=== PATIENT | female | born 1955 | race Two or more races ===

== ENCOUNTER 2018-09-19 23:02 | Emergency (ER) | payer BC, MEDICARE ==
[2018-09-20] MEDS ORDERED: traMADol TAB* 50 MG PO ONE (02:11)
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
[2018-09-20 05:29] VITALS: BP 119/79
== END 2018-09-20 06:30 | disposition home or self-care (01) ==
LOC: ED 23:02
DX: S02.2XXA Fracture of nasal bones, initial encounter for closed fracture (principal); S93.401A Sprain of unspecified ligament of right ankle, initial encounter; S00.83XA Contusion of other part of head, initial encounter; W19.XXXA Unspecified fall, initial encounter; F17.210 Nicotine dependence, cigarettes, uncomplicated; Z79.899 Other long term (current) drug therapy; M17.11 Unilateral primary osteoarthritis, right knee
CPT/HCPCS: 70450; 70486; 72125; 99284; A9270-GY

== ENCOUNTER 2019-05-09 09:41 | Emergency (ER) | payer MEDICARE ==
--- OUTSIDE RECORDS SUMMARY | 2019-05-09 10:05 | XMS REPORT | Continuity of Care Document ---
:1955 External Reference #:[id number] Author Name TUCKER gNo Address [address] [place] [address] Care Team Providers Name Role Phone Vikas Gamble MD - Family Medicine Care Team Information Biomass Production Manager [phone] Asthma & Allergy - Allergy & Care Team Information Biomass Production Manager [phone] Immunology Problems Active Problems Provider Date Electrocardiogram abnormal Vikas Gamble M.D. Onset: 12/29/2017 Osteoporosis Vikas Gamble M.D. Onset: 12/29/2017 Tobacco use Vikas Gamble M.D. Onset: 12/29/2017 Knee pain Vikas Gamble M.D. Onset: 12/29/2017 Essential hypertension TUCKER Ngo Onset: 03/14/2015 Benign essential hypertension Vikas Gamble M.D. Onset: 02/04/2011 Depressive disorder Vikas Gamble M.D. Onset: 02/04/2011 Social History Type Date Description Comments Sex Unknown Tobacco Use Start: Unknown Current Cigarette Smoker Tobacco Use Start: Unknown Current Cigarette Smoker 1/2 Pack Daily Smoking Status Reviewed: 05/03/19 Current Cigarette Smoker 1/2 Pack Daily ETOH Use 10/2017 Currently consumes alcohol excessive, per the patient Tobacco Use Start: Unknown Patient is a current smoker, smokes every day Allergies, Adverse Reactions, Alerts Description No Known Drug Allergies Medications Active Medications SIG Qnty Indications Ordering Provider Date Tramadol HCL 1 every 6 hours 28tabs M54.5 Leilani Morales, 05/03/2019 50mg as needed pain POLE CLIMBER Tablets M54.6 Methocarbamol 1 by mouth twice 60tabs M54.6 Leilani Morales, 05/03/2019 500mg Tablets a day as needed POLE CLIMBER spasm M54.5 Celexa 2 by mouth every 180tabs F33.9 Leilani Nealyamilka [facility] 08/12/2018 40mg Tablets day F43.21 R45.84 Alprazolam 1 by mouth 60tabs Vikas SundarRupinder Gamble, 07/12/2018 0.25mg Tablets twice a day as M.D. needed [facility] Nicotine Transdermal apply 1 patch 42units Z72.0 Vikas SundarRupinder Gamble, 04/2017 System Step 1 to the skin M.D. 21mg/24HR Patches 24HR every 24 hours Metoprolol Tartrate take 1 tablet 60tabs Leilani 09/05/2011 50mg Tablets by mouth two [facility] times daily Hydrochlorothiazide Take 1 Tablet 30tabs Vikas SundarRupinder Gamble, 08/29/2011 25mg Tablets By Mouth Every M.D. Day. Eat A Banana Three Times Weekly Probiotic 1 po qd Unknown Capsules Magnesium Citrate 1 by mouth Unknown 250mg Tablets every day Vitamin D3 Unknown Mometasone Furoate 2 sprays in Unknown 50mcg/Act each nostril Suspension once daily Olopatadine HCL 1 drop each eye Unknown 0.1% Solution twice a day as needed Medications Administered in Office Medication SIG Qnty Indications Ordering Provider Date Injection Subcutaneous Or Leilani Nealyamilka [facility] 05/03/2019 Intramuscular Injection Immunizations CPT Code Status Date Vaccine Lot # [id number] Given 12/17/2018 Influenza Vac, [place] [id number] Given 01/03/2018 Influenza Vac, [place] [address] Given 01/04/2017 Influenza Vac, [place]riv[place] [address] Given 09/11/2016 Tdap Tetanus, W Pertussis [id number] Given 01/05/2016 Influenza Vac, [place]riv[place] [address] Given 08/10/2015 Pneumococcal Conjugate Vacc-13 12310 Given 06/20/2015 Zostivax 05582 Given 01/05/2015 Influenza Vac, [place]riv[place] [address] Given 01/13/2014 DO Not Use Split Influenza Virus Vaccine 92900 Given 02/13/2013 DO Not Use Split Influenza Virus Vaccine 21108 Given 03/18/2012 DO Not Use Split Influenza Virus Vaccine 35627 Given 12/19/2010 DO Not Use Split Influenza Virus Vaccine [id number] 22851 Given 02/02/2010 DO Not Use Split Influenza Virus Vaccine [id number] 82154 Given 01/29/2008 DO Not Use Split Influenza Virus Vaccine [id number] 88526 Given 02/06/2007 DO Not Use Split Influenza Virus Vaccine [id number] 33986 Given 02/07/2006 DO Not Use Split Influenza Virus Vaccine [id number] 68947 Given 02/13/2005 DO Not Use Split Influenza Virus Vaccine Vital Signs Date Vital Result Comment 05/03/2019 1:30pm BP Systolic 120 mmHg BP Diastolic 80 mmHg Heart Rate 70 /min Body Temperature 98.0 F Respiratory Rate 16 /min Weight 184.00 lb 08/12/2018 1:06pm BP Systolic 126 mmHg BP Diastolic 70 mmHg Heart Rate 70 /min Body Temperature 97.3 F Respiratory Rate 16 /min Weight 194.00 lb Results Test Acquired Facility Test Result H/L Range Note Date Laboratory test 12/30/2018 [facility] Cancelled - Not Applicable [address] [place] [address] NOTE> [phone] Laboratory test 12/30/2018 [facility] Cancelled - Not Applicable [address] [place] [address] NOTE> [phone] 1 Cancelled - Duplicate Order This order has been cancelled due to patient order duplication. Test Type: Composite algorithmic analysis of stool DNA-biomarkers with hemoglobin immunoassay. Quantitative values of individual biomarkers are not reportable and are not associated with individual biomarker result reference ranges. Precautions and Limitations: Cologuard is intended for colorectal cancer screening of adults of either sex, 50 years or older, who are at typical average-risk for colorectal cancer. A negative C ologuard test result does not guarantee the absence of colorectal cancer or advanced adenoma (pre-cancer). Patients with a negative Cologuard test result should be advised to continue participating in a colorectal cancer screening program. Cologuard may produce a positive result , even though a colonoscopy may not find colorectal cancer or precancerous polyps. The performance of Cologuard has been esta blished in a cross sectional study (i.e., single point in time). Performance has not been evaluated in adults who have been previously tested with Cologuard or in patients less than 50 years of age. Col oguard has been approved for use by the [place]. FDA. Cologuard performance data in a 10,000 patient pivotal study using colonoscopy as the reference method can be accessed at the following location: www.[employer]/results. Additional description of the Cologuard test process, warnings and precautions can be found at [email or web address]. Rx Only. 2 Cancelled - Order This order has because it has exceeded 365 days from the initial order. Please contact the laboratory to reorder this test if clinically indicated. Test Type: Composite algorithmic analysis of stool DNA-biomarkers with hemoglobin immunoassay. Quantitative values of individual biomarkers are not reportable and are not associated with individual biomarker result reference ranges. Precautions and Limitations: Cologuard is intended for colorectal cancer screening of adults of either sex, 50 years or older, who are at typical average -risk for colorectal cancer. A negative Cologuard test result does not guarantee the absence of colorectal cancer or advanced adenoma (pre-cancer). Patients with a negative Cologuard test result should be advised to continue participating in a colorec dewayne cancer screening program. Cologuard may produce a positive result, even though a colonoscopy may not find colorectal cancer or precancerous polyps. The performance of Cologuard has been established in a cross sectional study (i.e., single point in time). Performance has not been evaluated in adults who have been previously tested with Cologuard or in patients less than 50 years of age. Cologuard h as been approved for use by the [place].S. FDA. Cologuard performance data in a 10, 000 patient pivotal study using colonoscopy as the reference method can be accessed at the following location: www[employer]Medical/results. Additional description of the Cologuard test process, warnings and precautions can be found at [email or web address]. Rx Only. Procedures Date Code Description Status 05/03/2019 94671 Injection Subcutaneous Or Intramuscular Completed 02/22/2019 [id number] Mammogram Completed 12/15/2017 [id number] Mammogram Completed 12/15/2017 [id number] Bone Mineral Density Test Completed 10/01/2016 [id number] Mammogram Completed 03/21/2015 [id number] Mammogram Completed 03/28/2011 [id number] Mammogram Completed 03/22/2010 [id number] Mammogram Completed 01/23/2009 [id number] Mammogram Completed 09/30/2007 [id number] Mammogram Completed Medical Devices Description No Information Available Encounters Description No Information Available Assessments Date Code Description Provider 05/03/2019 F33.9 Major depressive disorder, recurrent, SD NgoP unspecified 05/03/2019 F43.21 Adjustment disorder with depressed mood Leilani Morales [facility] 05/03/2019 G47.00 Insomnia, unspecified Leilani Morales [facility] 05/03/2019 R45.84 Anhedonia Leilani Morales [facility] 05/03/2019 Z63.4 Disappearance and of family member Leilani Morales [facility] 05/03/2019 M54.6 Pain in thoracic spine Leilani Morales [facility] 05/03/2019 M54.5 Low back pain Leilani Morales [facility] 05/03/2019 K64.9 Unspecified hemorrhoids Leilani Morales [facility] 05/03/2019 K59.00 Constipation, unspecified TUCKER Ngo Plan of Treatment Future Appointment(s):05/17/2019 2:00 pm - TUCKER Ngo at [facility] Szhjqe5305/03/2019 - TUCKER NgoF33.9 Major depressive disorder, recurrent, unspecifiedComments:At this time we are going to increase your dose of Celexa so that you are taking 80mg (Two 40mg tablets) daily for the next two weeks until you follow-up in the office. It might really help to re-establish with [facility] or to meet with [facility] and their grief counseling services to help you through this difficult time. It is well known that the combination of medication andtherapy work better then medication alone in improving mood symptomsFollow up:2 weeks with LGF43.21 Adjustment disorder with depressed moodComments:See xirgiR63.00 Insomnia, unspecifiedComments:Once we get your back pain in better control the hope is that you are sleeping better. If not pleasefollow-up with the office to discuss alternative zcmelnaE68.84 AnhedoniaComments:See etfzzR65.4 Disappearance and of family memberComments:See tujbeA56.6 Pain in thoracic spineNew Medication:Tramadol HCL 50 mg - 1 every 6 hours as needed painMethocarbamol 500 mg - 1 by mouth twice a day as needed spasmNew Xrays:Thoracic Spine 2 Views, Ordered: 05/03/19Lumbar Spine 2 Or 3 Views, Ordered: 05/03/19Comments:Try gentle position changes throughout the day. Take the medications as prescribed. Try to take a daily warm shower. Continued use of your heating pad is also a good idea. Get your x-ray done this weekand we will follow-up with you per the result.M54.5 Low back painNew Medication:Tramadol HCL 50 mg - 1 every 6 hours as needed painMethocarbamol 500 mg - 1 by mouth twice a day as needed spasmNew Xrays:Lumbar Spine 2 Or 3 Views, Ordered: 05/03/19K64.9 Unspecified hemorrhoidsComments:Continued use of [id number] hydrocortisone cream 1% to help reduce swelling from the hemorrhoids as well as Tucks or witch kj pads for soothing. Also add fiber into your diet with use of metamucil or increased dietary fiber intake can help reduce straining and discomfort from zbttuupnjbvQ12.00 Constipation, unspecifiedAllComments:Medication Management Patient Understands medications he 's taking? Yes No Are there Barriers to Adherence? Yes No Has the patient been asked about herbal supplements and therapies, andOTC meds? Yes No As always, we strongly encourage a healthy diet and making physical activity a part of your every day life. If you have questions about how or where to start, please contact the office. Functional Status Description No Information Available Mental Status Description No Information Available Referrals Description No Information Available
--- NOTE | 2019-05-09 12:49 | ED ---
Back Pain - HPI Summary HPI Summary: This pt is a 64 y/o female presenting to [facility] c/o upper and middle back pain since 5 weeks ago s/p getting out of bed and twisting back. Pt reports 5 weeks ago she got up from bed one morning and twisted her back "funny." Pt states she tried acupuncture and chiropractor but was told they couldn't help her with her back. Pt notes she went to see her PCP on 05/03/19 where she was given a shot of [place] and prescribed muscle relaxant and Tramadol. Pt had x-rays done on 08/16. Pt notes [place] and muscle relaxants have not been helping her pain and was then prescribed Hydrocodone. Pt took Hydrocodone on 05/06, 05/07, and 05/08 with no relief and instead has constipation from it. Pt reports her pain is nonradiating in her back. Denies fever, chest pain, SOB, urinary or fecal dysfunction, weakness, numbness, or tingling in lower extremities. - History of Current Complaint Chief Complaint: EDBackInjuryPain Stated Complaint: BACK PAIN PER PT Hx Obtained From: Patient Onset/Duration: Lasting Weeks, Still Present Onset/Duration: Started Weeks Ago, Still Present Timing: Lasting Weeks Back Pain Location: Is Discrete @ - upper and middle back Severity Currently: Severe Pain Intensity: 10 Pain Scale Used: 0-10 Numeric Aggravating Symptom(s): Nothing Alleviating Symptom(s): Nothing Associated Signs And Symptoms: Negative: Fever, Weakness, Numbness, Tingling, Bladder Incontinence, Bowel Incontinence - Allergies/Home Medications Allergies/Adverse Reactions: Allergies Allergy/AdvReac Type Severity Reaction Status Date / Time lactose Allergy Diarrhea Verified 05/09/19 09:57 Home Medications: Home Medications Cholecalciferol CAP/TAB(NF) [Vitamin D3 CAP/TAB (NF)] 5,000 unit PO DAILY [History Confirmed 05/09/19] HYDROcodone/ACETAMIN 5-325 MG* [[place] 5-325 TAB*] 1 tab PO TID PRN 05/09/19 [ History Confirmed 05/09/19] L.acidoph,Paracasei, B.lactis [Probiotic] 1 each PO DAILY 05/09/19 [History Confirmed 05/09/19] Magnesium Chloride EC TAB* [Slow Mag EC TAB*] 250 mg PO DAILY 05/09/19 [History Confirmed 05/09/19] Methocarbamol TAB* [Robaxin 500 MG TAB*] 500 mg PO BID PRN 05/09/19 [History Confirmed 05/09/19] Mometasone NASAL (NF) [Nasonex (NF)] 2 spray BOTH NARES DAILY 05/09/19 [History Confirmed 05/09/19] Nicotine PATCH 21 MG/24 HR* 21 mg TRANSDERM DAILY 05/09/19 [History Confirmed ] Olopatadine 0.1% OPHTH (NF) [Patanol 0.1% OPHTH (NF)] 1 drop BOTH EYES BID 05/09 [History Confirmed 05/09/19] PMH/Surg Hx/FS Hx/Imm Hx Endocrine/Hematology History: Denies: Hx Diabetes Musculoskeletal History: Denies: Hx Osteoporosis Sensory History: Denies: Hx Legally Blind, Hx Deafness Opthamlomology History: Denies: Hx Legally Blind Psychiatric History: Reports: Hx Anxiety, Hx Depression, Hx Post Traumatic Stress Disorder - Cancer History Hx Chemotherapy: No Hx Radiation Therapy: No Infectious Disease History: No Infectious Disease History: Denies: Traveled Outside the [place] in Last 30 Days - Family History Known Family History: Positive: Other - breast CA - Social History Alcohol Use: Daily Alcohol Amount: 3 beers/day Substance Use Type: Reports: None Smoking Status (MU): Heavy Every Day Tobacco Smoker Review of Systems Negative: Fever Negative: Chest Pain Negative: Shortness Of Breath Gastrointestinal: Other - POSITIVE: constipation Negative: incontinence Musculoskeletal: Other - POSITIVE: middle and upper back pain Negative: Weakness, Paresthesia, Numbness All Other Systems Reviewed And Are Negative: Yes Physical Exam - Summary Physical Exam Summary: VITAL SIGNS: Reviewed. GENERAL: Patient is a well-developed and nourished female. Patient is not in any acute respiratory distress. HEAD AND FACE: No signs of trauma. No ecchymosis, hematomas or skull depressions. No sinus tenderness. EYES: PERRLA, EOMI x 2, No injected conjunctiva, no nystagmus. EARS: Hearing grossly intact. Ear canals and tympanic membranes are within normal limits. MOUTH: Oropharynx within normal limits. NECK: Supple, trachea is midline, no adenopathy, no JVD, no carotid bruit, no c- spine tenderness, neck with full ROM. CHEST: Symmetric, no tenderness at palpation LUNGS: Clear to auscultation bilaterally. No wheezing or crackles. CVS: Regular rate and rhythm, S1 and S2 present, no murmurs or gallops appreciated. ABDOMEN: Soft, non-tender. No signs of distention. No rebound, no guarding, and no masses palpated. Bowel sounds are normal. MSK: FROM in all major joints, no edema, no cyanosis or clubbing. Paraspinal muscle tenderness in the thoracic spine. NEURO: Alert and oriented x 3. No acute neurological deficits. Speech is normal and follows commands. SKIN: Dry and warm Triage Information Reviewed: Yes Vital Signs On Initial Exam: Initial Vitals Temp Pulse Resp BP Pulse Ox 98.5 F 64 18 149/89 95 05/09/19 09:53 05/09/19 09:53 05/09/19 09:53 05/09/19 09:53 05/09/19 09:53 Vital Signs Reviewed: Yes Procedures - Sedation Patient Received Moderate/Deep Sedation with Procedure: No Diagnostics - Vital Signs Vital Signs Temp Pulse Resp BP Pulse Ox 05/09/19 09:53 98.5 F 64 18 149/89 95 - Laboratory Lab Statement: Any lab studies that have been ordered have been reviewed, and results considered in the medical decision making process. - Radiology Thoracic spine XR (from 05/04/19) Radiology Interpretation Completed By: Radiologist Summary of Radiographic Findings: IMPRESSION: Osteopenia. Age-indeterminate compression deformity of T6. Degenerative disc disease. Dr. Carbone has reviewed this report. Lumbar spine XR (from 05/04/19) Radiology Interpretation Completed By: Radiologist Summary of Radiographic Findings: IMPRESSION: 1. Osteopenia with age indeterminate compression fractures of T12 and L1. 2. Advanced degenerative disc disease at T12-L1. 3. Moderate facet arthropathy from L3-L4 through L5-S1. 4. Multilevel listhesis as above. 5. Calcified abdominal aorta. Dr. Carbone has reviewed this report. - CT Lumbar spine CT CT Interpretation Completed By: Radiologist Summary of CT Findings: IMPRESSION: #. T12, L1, and L2 probable osteoporotic compression fractures are likely chronic. No acute fracture evident. #. Degenerative arthropathy with multilevel significant acquired central canal and foraminal spinal stenosis as described above. Dr. Carbone has reviewed this report. Thoracic spine CT CT Interpretation Completed By: Radiologist Summary of CT Findings: IMPRESSION: 1. An age-indeterminate T6 compression fracture, resulting 40% vertebral body height loss, is likely subacute. There is no severe bony retropulsion. 2. More chronic appearing L1 compression deformity (50% height loss). 3. Coronary artery disease. 4. No severe osseous encroachment spinal canal and neural foramina. Dr. Carbone has reviewed this report. Re-Evaluation - Re-Evaluation First Eval Re-Evaluation Time: 13:05 Comment: Patient is ambulating in the ED without any significant abnormalities while using a cane without any pain. Second Eval Re-Evaluation Time: 14:49 Change: Improved Comment: Pain is controlled after pain medications. She will be discharged home with follow up from neurosurgery. Back Pain Course/Dx - Course Assessment/Plan: This pt is a 64 y/o female presenting to [facility] c/o upper and middle back pain since 5 weeks ago s/p getting out of bed and twisting back. Pt reports 5 weeks ago she got up from bed one morning and twisted her back "funny. " Pt states she tried acupuncture and chiropractor but was told they couldn't help her with her back. Pt notes she went to see her PCP on 05/03/19 where she was given a shot of [place] and prescribed muscle relaxant and Tramadol. Pt had x- rays done on 05/04/19. Pt notes [place] and muscle relaxants have not been helping her pain and was then prescribed Hydrocodone. Pt took Hydrocodone on , 05/07, and 05/08 with no relief and instead has constipation from it. Pt reports her pain is nonradiating in her back. Denies fever, chest pain, SOB, urinary or fecal dysfunction, weakness, numbness, or tingling in lower extremities. In the ED course the patient was placed in a radiation monitor, IV access was obtained, and she was given Toradol, Norflex and Decadron for the pain. T-spine CT IMPRESSION: 1. An age-indeterminate T6 compression fracture, resulting 40% vertebral body height loss, is likely subacute. There is no severe bony retropulsion. 2. More chronic appearing L1 compression deformity ( 50% height loss). 3. Coronary artery disease. 4. No severe osseous encroachment spinal canal and neural foramina. L-spine CT IMPRESSION: #. T12, L1, and L2 probable osteoporotic compression fractures are likely chronic. No acute fracture evident. #. Degenerative arthropathy with multilevel significant acquired central canal and foraminal spinal stenosis as described above. The patients pain has been controlled. The patient is able to ambulate with minimal pain. I discussed my physical exam and findings with the patient and the need to follow-up with neurosurgery. The patient understands and agrees. The patient will be given a prescription for Medrol Dosepak, ibuprofen and Robaxin. The patient already has [place] at home. She will also have a prescription for MiraLAX. At this point, I discussed all the findings and test results with the patient. Patient was instructed to return to the emergency room immediately if any of the symptoms return or worsen. Plan of care was discussed with the patient and the patient understands and agrees. All questions were answered at patient satisfaction. Patient understands and agrees. Neurological exam before discharge: Patient is alert and oriented x 3. No acute neurological deficits. Patient's vital signs are stable. Patient is to follow up with Neurosurgery. They understand and agree. The plan of care was discussed with the patient and the patient understands and agrees with the plan of care. All questions were answered at patient satisfaction. There were no further complaints or concerns. - Diagnoses Provider Diagnoses: Vertebral compression fracture, Back pain Discharge ED - Sign-Out/Discharge Documenting (check all that apply): Patient Departure - Discharge home - Discharge Plan Condition: Stable Disposition: HOME Prescriptions: Ibuprofen TAB* [Motrin TAB* 600 MG] 600 mg PO Q6H PRN #30 tab PRN Reason: Pain - Mild Methocarbamol TAB* [Robaxin 500 MG TAB*] 500 mg PO BID #12 tab methylPREDNISolone [Medrol] 4 mg PO QAM #1 tab.ds.[id number] Patient Education Materials: Vertebral Compression Fracture (ED), Back Pain (ED ) Referrals: Vikas Gamble MD [Primary Care Provider] - Tammy Pryor MD [Medical Doctor] - Additional Instructions: FOLLOW UP WITH YOUR PRIMARY CARE PROVIDER IN 2-3 DAYS. Follow up with neurosurgery (Dr. Pryor), call their office and make an appointment. RETURN TO THE ED FOR ANY NEW OR WORSENING SYMPTOMS. - Billing Disposition and Condition Condition: STABLE Disposition: Home - Attestation Statements Document Initiated by Scribe: Yes Documenting Scribe: Peri Rodriguez Provider For Whom Scribe is Documenting (Include Credential): Harsha Carbone MD Scribe Attestation: IPeri, scribed for Harsha Carbone MD on 05/11/19 at 0220. Scribe Documentation Reviewed: Yes Provider Attestation: The documentation as recorded by the Peri clark accurately reflects the service I personally performed and the decisions made by , Harsha Carbone MD Status of Scribe Document: Viewed
[2019-05-09] MEDS ORDERED: Dexamethasone IV* 4 MG/ML 1 ML (4 MG) IV SLOW PU ONE (12:52)
[2019-05-09] MEDS ORDERED: Ketorolac INJ* 30 MG/ML 1 ML VIAL IV PUSH ONE (12:52)
[2019-05-09] MEDS ORDERED: Orphenadrine Citrate IV* 30 MG/ML 2 ML VIAL IV ONE (12:53)
[2019-05-09 15:18] VITALS: BP 178/89
== END 2019-05-09 15:19 | disposition home or self-care (01) ==
LOC: ED 09:41
DX: M48.55XA Collapsed vertebra, not elsewhere classified, thoracolumbar region, initial encounter for fracture (principal); I25.10 Atherosclerotic heart disease of native coronary artery without angina pectoris; F41.9 Anxiety disorder, unspecified; F32.9 Major depressive disorder, single episode, unspecified; F43.10 Post-traumatic stress disorder, unspecified; F17.200 Nicotine dependence, unspecified, uncomplicated; Z79.899 Other long term (current) drug therapy
CPT/HCPCS: 72128; 72131; 96374; 96375; 99283; J1100; J1885; J2360

== ENCOUNTER 2019-05-16 09:53 | Emergency (ER) | payer MEDICARE ==
--- NOTE | 2019-05-16 10:30 | ED ---
Back Pain - HPI Summary HPI Summary: 64 year old F presenting to [facility] accompanied by EMS complains of unresolved back pain due to compressed vertebrae for which she came to [facility] last week for. Patient reports constipation and hemorrhoids as well. She states she has not been to the bathroom in two weeks and has a loss of appetite having only consumed protein drinks and oatmeal in the meantime. She wanted to be admitted last week for her back pain but was not allowed to and was told to come back in a week if the symptoms did not resolve hence her return. PMHx of arthritis in her knees. She is taking Prednisone but just ran out yesterday 05/15/2019, ibuprofen, and an antispasmodic. The patient rates the pain 10/10 in severity. Symptoms aggravated by movement. Symptoms alleviated by nothing. - History of Current Complaint Chief Complaint: EDBackInjuryPain Stated Complaint: BACK PAIN PER EMS Time Seen by Provider: 05/16/19 09:57 Hx Obtained From: Patient Onset/Duration: Lasting Weeks - since last week, Still Present Onset/Duration: Started Weeks Ago - last week Timing: Constant Severity Currently: Severe Pain Intensity: 10 Pain Scale Used: 0-10 Numeric Aggravating Symptom(s): Movement Alleviating Symptom(s): Nothing Associated Signs And Symptoms: Positive: Other - Back pain, constipation, hemorrhoids, loss of appetite. - Allergies/Home Medications Allergies/Adverse Reactions: Allergies Allergy/AdvReac Type Severity Reaction Status Date / Time lactose Allergy Diarrhea Verified 05/09/19 09:57 Home Medications: Home Medications Magnesium Citrate 250 mg PO DAILY 05/16/19 [History Confirmed 05/16/19] PMH/Surg Hx/FS Hx/Imm Hx Endocrine/Hematology History: Denies: Hx Diabetes Musculoskeletal History: Denies: Hx Osteoporosis Sensory History: Denies: Hx Legally Blind, Hx Deafness Opthamlomology History: Denies: Hx Legally Blind Psychiatric History: Reports: Hx Anxiety, Hx Depression, Hx Post Traumatic Stress Disorder - Cancer History Hx Chemotherapy: No Hx Radiation Therapy: No Infectious Disease History: No Infectious Disease History: Denies: Traveled Outside the [place] in Last 30 Days - Family History Known Family History: Positive: Other - breast CA - Social History Alcohol Use: Occasionally Alcohol Amount: 3 beers/day Substance Use Type: Reports: None Smoking Status (MU): Light Every Day Tobacco Smoker Review of Systems Constitutional: Other - loss of appetite Gastrointestinal: Other - constipation and hemorrhoids Positive: Other - back pain from compressed vertebrae All Other Systems Reviewed And Are Negative: Yes Physical Exam - Summary Physical Exam Summary: Appearance: The patient is well-nourished in no acute distress and in no acute pain. Skin: The skin is warm and dry, and skin color reflects adequate perfusion. HEENT: The head is normocephalic and atraumatic. The pupils are equal and reactive. The conjunctivae are clear and without drainage. Nares are patent and without drainage. Mouth reveals moist mucous membranes, and the throat is without erythema and exudate. The external ears are intact. The ear canals are patent and without drainage. The tympanic membranes are intact. Neck: The neck is supple with full range of motion and non-tender. There are no carotid bruits. There is no neck vein distension. Respiratory: Chest is non-tender. Lungs are clear to auscultation and breath sounds are symmetrical and equal. Cardiovascular: Heart is regular rate and rhythm. There is no murmur or rub auscultated. There is no peripheral edema and pulses are symmetrical and equal. Abdomen: The abdomen is soft and non-tender. There are normal bowel sounds heard in all four quadrants and there is no organomegaly palpated. Musculoskeletal: Paradorsal area tenderness noted. Negative straight leg raise. Neurological: Patient is alert and oriented to person, place and time. The patient has symmetrical motor strength in all four extremities. Cranial nerves are grossly intact. Deep tendon reflexes are symmetrical and equal in all four extremities. Psychiatric: The patient has an appropriate affect and does not exhibit any anxiety or depression. Triage Information Reviewed: Yes Vital Signs On Initial Exam: Initial Vitals Temp Pulse Resp BP Pulse Ox 97.1 F 52 18 135/76 93 05/16/19 09:56 05/16/19 09:56 05/16/19 09:56 05/16/19 09:56 05/16/19 09:56 Vital Signs Reviewed: Yes Procedures - Sedation Patient Received Moderate/Deep Sedation with Procedure: No Diagnostics - Vital Signs Vital Signs Temp Pulse Resp BP Pulse Ox 05/16/19 09:56 97.1 F 52 18 135/76 93 - Laboratory Lab Statement: Any lab studies that have been ordered have been reviewed, and results considered in the medical decision making process. - Radiology Abd x-ray Radiology Interpretation Completed By: Radiologist Summary of Radiographic Findings: IMPRESSION: LARGE AMOUNT RETAINED STOOL. has reviewed this report. Back Pain Course/Dx - Course Course Of Treatment: Ms. Lovell seen here about a week ago for back pain. She got a workup at that time was found to have a subacute thoracic compression fracture. She was given steroids as well as some opioids and did not like for the opioids felt and stopped taking them. She comes in today complaining that she has been constipated since. She was nontoxic in appearance stable vitals. She was given Ativan as a muscle relaxer and ketorolac for her back pain which helped a lot. Plain x-ray confirmed that the was a lot of stool in her descending and sigmoid colons. I'm treating her with a combination of Dulcolax suppositories and pills try to get her moving. - Diagnoses Provider Diagnoses: Constipation Discharge ED - Sign-Out/Discharge Documenting (check all that apply): Patient Departure - discharge - Discharge Plan Condition: Stable Disposition: HOME Prescriptions: Bisacodyl 10 mg SUPP [Dulcolax Supp*] 10 mg AL DAILY #2 supp Bisacodyl EC TAB* [Dulcolax EC TAB*] 5 mg PO DAILY #2 tab.ec Patient Education Materials: Constipation (ED) Referrals: Vikas Gamble MD [Primary Care Provider] - 3 Days Additional Instructions: Please follow up with your primary care provider in 3 days. Return to the Emergency Department for new or worsening symptoms. - Billing Disposition and Condition Condition: STABLE Disposition: Home - Attestation Statements Document Initiated by Maria Luz: Yes Documenting Scribe: Nahid Malik Provider For Whom Maria Luz is Documenting (Include Credential): Steve Badillo MD [employer] Attestation: Nahid Mccall, scribed for Steve Badillo MD on 05/16/19 at 1614. Scribe Documentation Reviewed: Yes Provider Attestation: The documentation as recorded by the Nahid clark accurately reflects the service I personally performed and the decisions made by me, Steve Badillo MD Status of Scribe Document: Viewed
[2019-05-16] MEDS ORDERED: LORazepam TAB(*) 1 MG PO ONE (10:35)
[2019-05-16] MEDS ORDERED: Ketorolac INJ* 30 MG/ML 1 ML VIAL IM ONE (10:35)
[2019-05-16 12:47] VITALS: BP 142/94
== END 2019-05-16 12:47 | disposition home or self-care (01) ==
LOC: ED 09:53
DX: K59.00 Constipation, unspecified (principal); S22.000D Wedge compression fracture of unspecified thoracic vertebra, subsequent encounter for fracture with routine healing; X58.XXXD Exposure to other specified factors, subsequent encounter; Z91.011 Allergy to milk products; F17.200 Nicotine dependence, unspecified, uncomplicated
CPT/HCPCS: 74018; 96372; 99283; A9270-GY; J1885

== ENCOUNTER 2019-05-18 13:38 | Emergency (ER) | payer MEDICARE ==
[2019-05-18] MEDS ORDERED: NS 0.9% 1000 ML** 1,000 ML IV ONE (14:02)
[2019-05-18] MEDS ORDERED: Ketorolac INJ* 30 MG/ML 1 ML VIAL IV PUSH ONE (14:20)
--- NOTE | 2019-05-18 14:20 | ED ---
Abdominal Pain/Female - HPI Summary HPI Summary: Patient is a 64-year-old female who presents emergency Department with chief complaint of constipation 25 days. Patient seen in the ED twice this week for back pain and constipation. Patient notes she has sustained compression fractures and has had ongoing back pain. Patient was prescribed a laxative that her last visit which she states is not helping. She denies vomiting. Patient states she is going to try to use an enema at home but states her back pain is too great to administer. Patient otherwise denies fever, chills, chest pain, shortness of breath. She has never had a colonoscopy. Patient also notes she has been feeling very depressed at home since her about a year ago. Patient states she was seeing a therapist in the summer but stopped once the weather got cold. Patient states she has not been taking care of herself and hasn't only been eating protein shakes. Patient states she does have friends in the area that help her with going to the store. Patient denies suicidal or homicidal ideations. Symptoms are moderate in severity. No current modifying factors. - History of Current Complaint Chief Complaint: EDGeneral Stated Complaint: BOWEL BLOCKAGE PER EMS Time Seen by Provider: 05/18/19 13:44 Pain Intensity: 3 Allergies/Adverse Reactions: Allergies Allergy/AdvReac Type Severity Reaction Status Date / Time lactose Allergy Diarrhea Verified 05/18/19 13:52 Home Medications: Home Medications ALPRAZolam TAB* [Xanax TAB*] 0.25 mg PO BID PRN 09/20/18 [History Confirmed ] Citalopram TAB* [Celexa TAB*] 40 mg PO DAILY 09/20/18 [History Confirmed ] Hydrochlorothiazide TAB* [Hydrodiuril TAB*] 25 mg PO DAILY 09/20/18 [History Confirmed 05/18/19] Metoprolol Tartrate TAB* [Lopressor TAB*] 50 mg PO BID 09/20/18 [History Confirmed 05/18/19] Cholecalciferol CAP/TAB(NF) [Vitamin D3 CAP/TAB (NF)] 5,000 unit PO DAILY [History Confirmed 05/18/19] HYDROcodone/ACETAMIN 5-325 MG* [[place] 5-325 TAB*] 1 tab PO TID PRN 05/09/19 [ History Confirmed 05/18/19] L.acidoph,Paracasei, B.lactis [Probiotic] 1 each PO DAILY 05/09/19 [History Confirmed 05/18/19] Methocarbamol TAB* [Robaxin 500 MG TAB*] 500 mg PO BID PRN 05/09/19 [History Confirmed 05/18/19] Mometasone NASAL (NF) [Nasonex (NF)] 2 spray BOTH NARES DAILY 05/09/19 [History Confirmed 05/18/19] Nicotine PATCH 21 MG/24 HR* 21 mg TRANSDERM DAILY 05/09/19 [History Confirmed ] Olopatadine 0.1% OPHTH (NF) [Patanol 0.1% OPHTH (NF)] 1 drop BOTH EYES BID 05/09 [History Confirmed 05/18/19] Magnesium Citrate 250 mg PO DAILY 05/16/19 [History Confirmed 05/18/19] Sodium Phosphate ADULT ENEMA* [Fleet Enema*] 1 enema TN DAILY PRN 05/18/19 [ History Confirmed 05/18/19] PMH/Surg Hx/FS Hx/Imm Hx Previously Healthy: Yes Endocrine/Hematology History: Denies: Hx Diabetes Musculoskeletal History: Denies: Hx Osteoporosis Sensory History: Denies: Hx Legally Blind, Hx Deafness Opthamlomology History: Denies: Hx Legally Blind Psychiatric History: Reports: Hx Anxiety, Hx Depression, Hx Post Traumatic Stress Disorder - Cancer History Hx Chemotherapy: No Hx Radiation Therapy: No Infectious Disease History: No Infectious Disease History: Denies: Traveled Outside the [place] in Last 30 Days - Family History Known Family History: Positive: Other - breast CA - Social History Occupation: Retired Lives: Alone Alcohol Use: None Alcohol Amount: 3 beers/day Substance Use Type: Reports: None Smoking Status (MU): Light Every Day Tobacco Smoker Review of Systems - ROS Summary Review of Systems Summary: ALPRAZolam TAB* [Xanax TAB*] 0.25 mg PO BID PRN 09/20/18 [History Confirmed ] Citalopram TAB* [Celexa TAB*] 40 mg PO DAILY 09/20/18 [History Confirmed ] Hydrochlorothiazide TAB* [Hydrodiuril TAB*] 25 mg PO DAILY 09/20/18 [History Confirmed 05/18/19] Metoprolol Tartrate TAB* [Lopressor TAB*] 50 mg PO BID 09/20/18 [History Confirmed 05/18/19] Cholecalciferol CAP/TAB(NF) [Vitamin D3 CAP/TAB (NF)] 5,000 unit PO DAILY [History Confirmed 05/18/19] HYDROcodone/ACETAMIN 5-325 MG* [[place] 5-325 TAB*] 1 tab PO TID PRN 05/09/19 [ History Confirmed 05/18/19] L.acidoph,Paracasei, B.lactis [Probiotic] 1 each PO DAILY 05/09/19 [History Confirmed 05/18/19] Methocarbamol TAB* [Robaxin 500 MG TAB*] 500 mg PO BID PRN 05/09/19 [History Confirmed 05/18/19] Mometasone NASAL (NF) [Nasonex (NF)] 2 spray BOTH NARES DAILY 05/09/19 [History Confirmed 05/18/19] Nicotine PATCH 21 MG/24 HR* 21 mg TRANSDERM DAILY 05/09/19 [History Confirmed ] Olopatadine 0.1% OPHTH (NF) [Patanol 0.1% OPHTH (NF)] 1 drop BOTH EYES BID 05/09 [History Confirmed 05/18/19] Magnesium Citrate 250 mg PO DAILY 05/16/19 [History Confirmed 05/18/19] Sodium Phosphate ADULT ENEMA* [Fleet Enema*] 1 enema TN DAILY PRN 05/18/19 [ History Confirmed 05/18/19] Constitutional: Negative Negative: Fever Cardiovascular: Negative Respiratory: Negative Positive: Abdominal Pain, Other - constipation Genitourinary: Negative Positive: Other - chronic back pain Neurological/Mental Status: Negative All Other Systems Reviewed And Are Negative: Yes Physical Exam Triage Information Reviewed: Yes Vital Signs On Initial Exam: Initial Vitals Temp Pulse Resp BP Pulse Ox 97.9 F 71 20 147/78 99 05/18/19 13:45 05/18/19 13:45 05/18/19 13:45 05/18/19 13:45 05/18/19 13:45 Vital Signs Reviewed: Yes Appearance: Positive: Well-Appearing - Pt. sitting up in bed in NAD. Unkept. Mouth very dry. Skin: Positive: Warm, Dry Head/Face: Positive: Normal Head/Face Inspection Eyes: Positive: Normal, EOMI Neck: Positive: Supple Respiratory/Lung Sounds: Positive: Clear to Auscultation, Breath Sounds Present Cardiovascular: Positive: Normal, RRR Abdomen Description: Positive: Other: - Obese. Abd. soft with mild diffuse tenderness. Rectal performed with TORRES Hale, shows small nonthrombosed hemorrhoids. Rectal exam shows large stool in vault. No blood. Bowel Sounds: Positive: Present Neurological: Positive: Normal, CN Intact II-III Psychiatric: Positive: Affect/Mood Appropriate Procedures - Sedation Patient Received Moderate/Deep Sedation with Procedure: No Diagnostics - Vital Signs Vital Signs Temp Pulse Resp BP Pulse Ox 05/18/19 13:45 97.9 F 71 20 147/78 99 - Laboratory Result Diagrams: 05/18/19 14:12 05/18/19 14:12 Lab Statement: Any lab studies that have been ordered have been reviewed, and results considered in the medical decision making process. Abdominal Pain Fem Course/Dx - Course Course Of Treatment: Pt. with c/o ongoing back pain from recent compression fx and constipation x 25 days. Pt. is not taking narcotic. Pt. notes she has not been taking care of herself at home and has been very depressed about the passing of her last year. Pt. denies SI and feels safe at home. SHe would like to speak with someone and social worker school saw pt. and gave her outpt. resources. Labs show mildly elevated WBC and low na. Pt. given iv fluids. Abd xray from two days ago shows large amount of stool without obstruction. Pt. received mag citrate and soap suds enema with good results. Pt. requesting dc. To continue lax at home. To increase fluids and fiber. To fu with outpt. psych and pcp. Willr eturn to er if sxs change or worsen. - Diagnoses Differential Diagnosis: Positive: Bowel Obstruction, Constipation Provider Diagnoses: Constipation, Depression Discharge ED - Sign-Out/Discharge Documenting (check all that apply): Patient Departure - Discharge Plan Condition: Improved Disposition: HOME Patient Education Materials: Constipation (ED), Depression (ED) Referrals: Vikas Gamble MD [Primary Care Provider] - Additional Instructions: Call PCP tomorrow for an appointment within one week Increase fluids and fiber in diet Continue laxative as directed Return to ER if symptoms change or worsen - Billing Disposition and Condition Condition: IMPROVED Disposition: Home - Attestation Statements Provider Attestation: I was available for consultation for this patient. I did not evaluate the patient or participate in any medical decision making or disposition decisions unless I am specifically named in the chart as having consulted on the patient. If I have consulted on the patient, please see my own ED note on the patient encounter. Paulina Thomson MD
[2019-05-18 14:28] LABS: ABS Basophils 0.1 10^3/ul (0-0.2); ABS Eosinophils 0.1 10^3/ul (0-0.6); ABS Lymphocytes 2.2 10^3/ul (1.0-4.8); ABS Neutrophils 9.5 10^3/ul (1.5-7.7); Eosinophil % 0.8 %; Hematocrit 41 % (35-47); Hemoglobin 14.4 g/dL (12.0-16.0); Lymphocyte % 17.1 %; Mean Corpuscular HGB Conc 35 g/dL (31-36); Mean Corpuscular Hemoglobin 33 pg (27-31); Mean Corpuscular Volume 94 fL (80-97); Mean Platelet Volume 8.7 fL (7.4-10.4); Platelet Count 327 10^3/uL (150-450); Red Cell Distribution Width 13 % (10-15)
[2019-05-18 14:40] LABS: Albumin 4.1 g/dL (3.2-5.2); Albumin/Globulin Ratio 1.5 (1-3); BUN/Creatinine Ratio 34.6 (8-20); Calcium 11.3 mg/dL (8.6-10.3); EGFR African American 142.8 (>60); Globulin 2.7 g/dL (2-4); Magnesium 1.7 mg/dL (1.9-2.7); Potassium 3.5 mmol/L (3.5-5.0); Total Bilirubin 0.5 mg/dL (0.2-1.0); Total Protein 6.8 g/dL (6.4-8.9)
[2019-05-18] MEDS ORDERED: LORazepam TAB(*) 1 MG PO ONE (15:05)
[2019-05-18] MEDS ORDERED: Magnesium CITRATE* 300 ML BTL PO ONE (15:43)
[2019-05-18] MEDS ORDERED: Magnesium CITRATE* 300 ML BTL ONE (15:45)
[2019-05-18 17:59] VITALS: BP 142/74
== END 2019-05-18 17:59 | disposition home or self-care (01) ==
LOC: ED 13:38
DX: K59.00 Constipation, unspecified (principal); F32.9 Major depressive disorder, single episode, unspecified; F17.200 Nicotine dependence, unspecified, uncomplicated; F43.10 Post-traumatic stress disorder, unspecified; F41.9 Anxiety disorder, unspecified; Z79.899 Other long term (current) drug therapy
CPT/HCPCS: 36415; 80053; 83735; 85025; 96361; 96374; 99283; A9270-GY; J1885

== ENCOUNTER 2019-06-12 19:50 | Emergency (ER) | payer MEDICARE ==
--- NOTE | 2019-06-12 20:21 | ED ---
Adult Trauma - HPI Summary HPI Summary: 64 y/o female presented to [facility] after a fall. Pt was trying to move into a chair and did not check the position her chair was in, and fell as a result. Pt did not hit her head and there was no LOC. Pt notes an old left lumbar injury that she believes she made worse. Pt has had suicidal ideations in the past but she does not have them today. Dr. Garcia stated that she does not need constant monitoring. Pt has hx of well controlled HTN and recent hx of constipation. She smokes 3 cigarettes per day, down from her previous habit of one pack per day. Medications reviewed. Allergies noted. Home Medications Medication Instructions Recorded Confirmed Type ALPRAZolam TAB* [Xanax TAB*] 0.25 mg PO BID PRN 09/20/18 05/18/19 History Citalopram TAB* [Celexa TAB*] 40 mg PO DAILY 09/20/18 05/18/19 History Hydrochlorothiazide TAB* 25 mg PO DAILY 09/20/18 05/18/19 History [Hydrodiuril TAB*] Metoprolol Tartrate TAB* 50 mg PO BID 09/20/18 05/18/19 History [Lopressor TAB*] Cholecalciferol CAP/TAB(NF) 5,000 unit PO DAILY 05/09/19 05/18/19 History [Vitamin D3 CAP/TAB (NF)] HYDROcodone/ACETAMIN 5-325 MG* 1 tab PO TID PRN 05/09/19 05/18/19 History [[place] 5-325 TAB*] L.acidoph,Paracasei, B.lactis 1 each PO DAILY 05/09/19 05/18/19 History [Probiotic] Methocarbamol TAB* [Robaxin 500 MG 500 mg PO BID PRN 05/09/19 05/18/19 History TAB*] Mometasone NASAL (NF) [Nasonex 2 spray BOTH NARES DAILY 05/09/19 05/18/19 History (NF)] Nicotine PATCH 21 MG/24 HR* 21 mg TRANSDERM DAILY 05/09/19 05/18/19 History Olopatadine 0.1% OPHTH (NF) 1 drop BOTH EYES BID 05/09/19 05/18/19 History [Patanol 0.1% OPHTH (NF)] Magnesium Citrate 250 mg PO DAILY 05/16/19 05/18/19 History Sodium Phosphate ADULT ENEMA* 1 enema ID DAILY PRN 05/18/19 05/18/19 History [Fleet Enema*] - History of Current Complaint Chief Complaint: EDFall Stated Complaint: FALL PER EMS Time Seen by Provider: 06/12/19 20:01 Hx Obtained From: Patient Mechanism of Injury: Fall Loss of Consciousness: no loss of consciousness Onset of Pain: Prior to Arrival Current Severity: Severe Pain Intensity: 10 Pain Scale Used: 0-10 Numeric Location: Back Associated Signs & Symptoms: Positive: Other: - constipation - Allergy/Home Medications Allergies/Adverse Reactions: Allergies Allergy/AdvReac Type Severity Reaction Status Date / Time lactose Allergy Diarrhea Verified 05/18/19 13:52 Home Medications: Home Medications ALPRAZolam TAB* [Xanax TAB*] 0.25 mg PO BID PRN 09/20/18 [History Confirmed ] Citalopram TAB* [Celexa TAB*] 40 mg PO DAILY 09/20/18 [History Confirmed ] Hydrochlorothiazide TAB* [Hydrodiuril TAB*] 25 mg PO DAILY 09/20/18 [History Confirmed 06/13/19] Metoprolol Tartrate TAB* [Lopressor TAB*] 50 mg PO BID 09/20/18 [History Confirmed 06/13/19] Cholecalciferol CAP/TAB(NF) [Vitamin D3 CAP/TAB (NF)] 5,000 unit PO DAILY [History Confirmed 06/13/19] Methocarbamol TAB* [Robaxin 500 MG TAB*] 500 mg PO BID PRN 05/09/19 [History Confirmed 06/13/19] Mometasone NASAL (NF) [Nasonex (NF)] 2 spray BOTH NARES DAILY 05/09/19 [History Confirmed 06/13/19] Magnesium Citrate 250 mg PO DAILY 05/16/19 [History Confirmed 06/13/19] Sodium Phosphate ADULT ENEMA* [Fleet Enema*] 1 enema ID DAILY PRN 05/18/19 [ History Confirmed 06/13/19] Acetaminophen [Tylenol] 650 mg PO Q6H PRN 06/13/19 [History Confirmed 06/13/19] Naproxen Sodium [Aleve] 220 mg PO BID PRN 06/13/19 [History Confirmed 06/13/19] PMH/Surg Hx/FS Hx/Imm Hx Endocrine/Hematology History: Denies: Hx Diabetes Musculoskeletal History: Denies: Hx Osteoporosis Sensory History: Denies: Hx Legally Blind, Hx Deafness Opthamlomology History: Denies: Hx Legally Blind Psychiatric History: Reports: Hx Anxiety, Hx Depression, Hx Post Traumatic Stress Disorder - Cancer History Hx Chemotherapy: No Hx Radiation Therapy: No Infectious Disease History: No Infectious Disease History: Denies: Traveled Outside the [place] in Last 30 Days - Family History Known Family History: Positive: Other - breast CA - Social History Alcohol Use: None Alcohol Amount: 3 beers/day Substance Use Type: Reports: None Smoking Status (MU): Light Every Day Tobacco Smoker Review of Systems Positive: Other - constipation Positive: Other - back pain All Other Systems Reviewed And Are Negative: Yes Physical Exam - Summary Physical Exam Summary: Constitutional: Well-developed, Well-nourished, Alert. (-) Distressed Skin: Warm, Dry HENT: Normocephalic; Atraumatic Eyes: Conjunctiva normal Neck: Musculoskeletal ROM normal neck. (-) JVD, (-) Stridor, (-) Tracheal deviation Cardio: Rhythm regular, rate normal, Heart sounds normal; Intact distal pulses; Radial pulses are 2+ and symmetric. (-) Murmur Pulmonary/Chest wall: Effort normal. (-) Respiratory distress, (-) Wheezes, (-) Rales Abd: Soft, (-) tenderness, (-) Distension, (-) Guarding, (-) Rebound Musculoskeletal: (-) Edema, Tenderness in posterior left hip, No midline tenderness Lymph: (-) Cervical adenopathy Neuro: Alert, Oriented x3 Psych: Mood and affect Normal Triage Information Reviewed: Yes Vital Signs On Initial Exam: Initial Vitals Temp Pulse Resp BP Pulse Ox 98.4 F 106 16 172/94 97 06/12/19 19:57 06/12/19 19:57 06/12/19 19:57 06/12/19 19:57 06/12/19 19:57 Vital Signs Reviewed: Yes Procedures - Sedation Patient Received Moderate/Deep Sedation with Procedure: No Diagnostics - Vital Signs Vital Signs Temp Pulse Resp BP Pulse Ox 06/12/19 19:57 98.4 F 106 16 172/94 97 - Laboratory Result Diagrams: 06/12/19 20:25 06/12/19 20:24 Lab Statement: Any lab studies that have been ordered have been reviewed, and results considered in the medical decision making process. Adult Trauma Course/Dx - Course Course Of Treatment: Patient is here after falling after missing her chair. Patient came in with back pain. Patient had labs performed which showed mild hypokalemia. Patient was signed out to Dr. Garcia pending CT scan results - Diagnoses Provider Diagnoses: Fall, Compression fracture, Constipation Discharge ED - Sign-Out/Discharge Documenting (check all that apply): Sign-Out Patient Signing out patient TO: Mabel Garcia - Pt signed out to Dr. Garcia at 2200 termination of shift pending CT results and dispo. Receiving patient FROM: Rick Holder - Discharge Plan Condition: Stable Disposition: HOME Patient Education Materials: Constipation (ED), Vertebral Compression Fracture (ED), Fall Prevention (ED), Hip Contusion (ED) Referrals: Vikas Gamble MD [Primary Care Provider] - 3 Days Additional Instructions: Take motrin and tylenol for your pain Follow up with your primary care doctor in 1-3 days Return to the ED if you have another fall with injury, uncontrolled pain, or any other concerning symptoms - Billing Disposition and Condition Condition: STABLE Disposition: Home - Attestation Statements Document Initiated by Maria Luz: Yes Documenting Scribe: Tye Ann Provider For Whom Maria Luz is Documenting (Include Credential): Rick Sheehan MD Scribe Attestation: Tye Mccall, scribed for Rick Sheehan MD on 06/14/19 at 2141. Scribe Documentation Reviewed: Yes Provider Attestation: The documentation as recorded by the Tye clark accurately reflects the service I personally performed and the decisions made by me, Rick Sheehan MD Status of Scribe Document: Viewed
[2019-06-12 20:32] LABS: ABS Basophils 0.1 10^3/ul (0-0.2); ABS Eosinophils 0.2 10^3/ul (0-0.6); ABS Lymphocytes 1.6 10^3/ul (1.0-4.8); ABS Monocytes 1.2 10^3/ul (0-0.8); ABS Neutrophils 9.1 10^3/ul (1.5-7.7); Eosinophil % 1.4 %; Hematocrit 42 % (35-47); Hemoglobin 14.7 g/dL (12.0-16.0); Lymphocyte % 13.4 %; Mean Corpuscular HGB Conc 35 g/dL (31-36); Mean Corpuscular Hemoglobin 32 pg (27-31); Mean Corpuscular Volume 92 fL (80-97); Mean Platelet Volume 9.5 fL (7.4-10.4); Platelet Count 276 10^3/uL (150-450); Red Blood Count 4.58 10^6 /uL (3.70-4.87); Red Cell Distribution Width 13 % (10-15); White Blood Count 12.2 10^3/uL (3.5-10.8)
[2019-06-12 20:48] LABS: Albumin 3.7 g/dL (3.2-5.2); Albumin/Globulin Ratio 1.3 (1-3); BUN/Creatinine Ratio 38.3 (8-20); Calcium 12.1 mg/dL (8.6-10.3); EGFR African American 160.4 (>60); EGFR Non-African American 132.6 (>60); Globulin 2.9 g/dL (2-4); Potassium 2.9 mmol/L (3.5-5.0); Total Bilirubin 0.6 mg/dL (0.2-1.0); Total Protein 6.6 g/dL (6.4-8.9)
--- OUTSIDE RECORDS SUMMARY | 2019-06-12 21:07 | XMS REPORT | Continuity of Care Document ---
:1955 External Reference #:[id number] Author Name Elsie Acosta Address [address] [place] [address] Care Team Providers Name Role Phone Vikas Gamble MD - Family Medicine Care Team Information Chemical Research Technician [phone] Asthma & Allergy - Allergy & Care Team Information Chemical Research Technician [phone] Immunology Problems Active Problems Provider Date Depressive disorder Vikas Gamble M.D. Onset: 02/04/2011 Benign essential hypertension Vikas Gamble M.D. Onset: 02/04/2011 Essential hypertension TUCKER Ngo Onset: 03/14/2015 Knee pain Vikas Gamble M.D. Onset: 12/29/2017 Tobacco use Vikas Gamble M.D. Onset: 12/29/2017 Osteoporosis Vikas Gamble M.D. Onset: 12/29/2017 Electrocardiogram abnormal Vikas Gamble M.D. 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 needed [facility] Nicotine Transdermal apply 1 patch 42units Z72.0 Vikas Gamble, 04/2017 System Step 1 to the skin M.D. 21mg/24HR Patches 24HR every 24 hours Metoprolol Tartrate take 1 tablet 60tabs Leilani 09/05/2011 50mg Tablets by mouth two TUCKER Morales times daily Hydrochlorothiazide Take 1 Tablet 30tabs Vikas Gamble, 08/29/2011 25mg Tablets By Mouth Every M.D. Day. Eat A Banana Three Times Weekly Probiotic 1 po qd Unknown Capsules Magnesium Citrate 1 by mouth Unknown 250mg Tablets every day Vitamin D3 Unknown Mometasone Furoate 2 sprays in Unknown 50mcg/Act each nostril Suspension once daily Olopatadine HCL 1 drop each eye Unknown 0.1% Solution twice a day as needed Aleve Unknown History Medications Tramadol HCL 1 every 6 hours 28tabs M54.5 Leilani Morales, 05/03/2019 - 50mg as needed pain MANAGER [employer]S 05/07/2019 Tablets M54.6 Medications Administered in Office Medication SIG Qnty Indications Ordering Provider Date Injection Subcutaneous Or TUCKER Ngo 05/03/2019 Intramuscular Injection Immunizations CPT Code Status Date Vaccine Lot # [id number] Given 12/17/2018 Influenza Vac, Quad[place], [place] [id number] Given 01/03/2018 Influenza Vac, [place]riv[place], [place] [address] Given 01/04/2017 Influenza Vac, Quadriv[place], [place] [address] Given 09/11/2016 Tdap Tetanus, W Pertussis [id number] 55293 Given 01/05/2016 Influenza Vac, Quadriv[place], [place] [address] Given 08/10/2015 Pneumococcal Conjugate Vacc-13 96920 Given 06/20/2015 Zostivax 09371 Given 01/05/2015 Influenza Vac, Quadriv[place], [place] [address] Given 01/13/2014 DO Not Use Split Influenza Virus Vaccine 32226 Given 02/13/2013 DO Not Use Split Influenza Virus Vaccine 90293 Given 03/18/2012 DO Not Use Split Influenza Virus Vaccine 10915 Given 12/19/2010 DO Not Use Split Influenza Virus Vaccine [id number] 34567 Given 02/02/2010 DO Not Use Split Influenza Virus Vaccine [id number] 33035 Given 01/29/2008 DO Not Use Split Influenza Virus Vaccine [id number] 02430 Given 02/06/2007 DO Not Use Split Influenza Virus Vaccine [id number] 40348 Given 02/07/2006 DO Not Use Split Influenza Virus Vaccine [id number] 78610 Given 02/13/2005 DO Not Use Split Influenza Virus Vaccine Vital Signs Date Vital Result Comment 06/07/2019 10:09am BP Systolic 110 mmHg BP Diastolic 60 mmHg Heart Rate 66 /min Body Temperature 96.6 F Respiratory Rate 16 /min O2 % BldC Oximetry 97 % Height 60 inches 5'0" Weight 170.00 lb BMI (Body Mass Index) 33.2 kg/m2 05/03/2019 1:30pm BP Systolic 120 mmHg BP Diastolic 80 mmHg Heart Rate 70 /min Body Temperature 98.0 F Respiratory Rate 16 /min Weight 184.00 lb Results Test Acquired Date Facility Test Result H/L Range Note CBC Auto Diff 05/18/2019 [facility] White Blood 13.0 10^3/uL High 3.5-10.8 Count Red Blood Count 4.40 10^6/uL Normal 3.70-4.87 Hemoglobin 14.4 g/dL Normal 12.0-16.0 Hematocrit 41 % Normal 35-47 Mean Corpuscular Volume 94 fL Normal 80-97 Mean Corpuscular Hemoglobin 33 pg High 27-31 Mean Corpuscular HGB Conc 35 g/dL Normal 31-36 Red Cell Distribution Width 13 % Normal 10-15 Platelet Count 327 10^3/uL Normal 150-450 Mean Platelet Volume 8.7 fL Normal 7.4-10.4 Abs Neutrophils 9.5 10^3/uL High 1.5-7.7 Abs Lymphocytes 2.2 10^3/uL Normal 1.0-4.8 Abs Monocytes 1.0 10^3/uL High 0-0.8 Abs Eosinophils 0.1 10^3/uL Normal 0-0.6 Abs Basophils 0.1 10^3/uL Normal 0-0.2 Abs Nucleated RBC 0.0 10^3/uL Granulocyte % 73.5 % Lymphocyte % 17.1 % Monocyte % 8.1 % Eosinophil % 0.8 % Basophil % 0.5 % Nucleated Red Blood Cells % 0.0 Comp Metabolic Panel 05/18/2019 [facility] Sodium 132 mmol/L Low 135-145 Potassium 3.5 mmol/L Normal 3.5-5.0 Chloride 101 mmol/L Normal 101-111 Co2 Carbon Dioxide 25 mmol/L Normal 22-32 Anion Gap 6 mmol/L Normal 2-11 Glucose 89 mg/dL Normal 70-100 Blood Urea Nitrogen 18 mg/dL Normal 6-24 Creatinine 0.52 mg/dL Normal 0.51-0.95 BUN/Creatinine Ratio 34.6 High 8-20 Calcium 11.3 mg/dL High 8.6-10.3 Total Protein 6.8 g/dL Normal 6.4-8.9 Albumin 4.1 g/dL Normal 3.2-5.2 Globulin 2.7 g/dL Normal 2-4 Albumin/Globulin Ratio 1.5 Normal 1-3 Total Bilirubin 0.50 mg/dL Normal 0.2-1.0 Alkaline Phosphatase 62 U/L Normal 34-104 Alt 15 U/L Normal 7-52 Ast 17 U/L Normal 13-39 Egfr Non- 118.0 >60 Egfr 142.8 >60 1 Laboratory test 05/18/2019 [facility] Magnesium 1.7 mg/dL Low 1.9-2.7 finding Laboratory test 12/30/2018 [facility] Cologuard Cancelled - Not Applicable [address] [place] [address] NOTE> [phone] Laboratory test 12/30/2018 [facility] Colog[facility] Cancelled - Not Applicable 3 finding [address] [place] [address] NOTE> [phone] 1 Because ethnic data is not always readily available, this report includes an eGFR for both -Americans and non- Americans. The National Kidney Disease Education Program (NKDEP) does not endorse the use of the MDRD equation for patients that are not between the ages of 18 and 70, are , have extremes of body size, muscle mass, or nutritional status, or are non- or non-. According to the National Kidney Foundation, irrespective of diagnosis, the stage of the disease is based on the level of kidney function: Stage Description GFR(mL/min/1.73 m(2)) 1 Kidney damage with normal or decreased GFR 90 2 Kidney damage with mild decrease in GFR 60-89 3 Moderate decrease in GFR 30-59 4 Severe decrease in GFR 15-29 5 Kidney failure <15 (or dialysis) 2 Cancelled - Duplicate Order This order has [...] can be accessed at the following location: www.[employer]/results. Additional description of the Cologuard test process, warnings and precautions can be found at [email or web address]. Rx Only. 3 Cancelled - Order This order has because [...] can be accessed at the following location: [email or web address]. Additional description of the Cologuard test process, warnings and precautions can be found at [email or web address]. Rx Only. Procedures Date Code Description Status 05/03/2019 34794 Injection Subcutaneous Or Intramuscular Completed 05/03/2019 72146 Brief Emotional/Behav Assessment W/ Scoring Doc Per Completed Standard Inst 02/22/2019 [id number] Mammogram Completed 12/15/2017 [id number] Mammogram Completed 12/15/2017 [id number] Bone Mineral Density Test Completed 10/01/2016 [id number] Mammogram Completed 03/21/2015 [id number] Mammogram Completed 03/28/2011 [id number] Mammogram Completed 03/22/2010 [id number] Mammogram Completed 01/23/2009 [id number] Mammogram Completed 09/30/2007 [id number] Mammogram Completed Medical Devices Description No Information Available Encounters Type Date Location Provider Dx Diagnosis Office Visit 05/03/2019 Main Office Leilani Morales, F33.9 Major depressive 1:30p MANAGER [employer]PLICATIONS disorder, recurrent, unspecified F43.21 Adjustment disorder with depressed mood G47.00 Insomnia, unspecified R45.84 Anhedonia Z63.4 Disappearance and of family member M54.6 Pain in thoracic spine M54.5 Low back pain K64.9 Unspecified hemorrhoids K59.00 Constipation, unspecified Assessments Date Code Description Provider 06/07/2019 K59.00 Constipation, unspecified Trey Acosta-C 05/03/2019 F33.9 Major depressive disorder, recurrent, Leilani Andrew, MANAGER [employer]PLICATIONS unspecified 05/03/2019 F43.21 Adjustment disorder with depressed mood Leilani Adnrew , MANAGER [employer]PLICATIONS 05/03/2019 G47.00 Insomnia, unspecified Leilani Andrew, MANAGER [employer]PLICATIONS 05/03/2019 R45.84 Anhedonia Leilani Andrew, MANAGER [employer]PLICATIONS 05/03/2019 Z63.4 Disappearance and of family member Leilaninavjot Morales , MANAGER [employer]PLICATIONS 05/03/2019 M54.6 Pain in thoracic spine Leilani Andrew, MANAGER [employer] APPLICATIONS 05/03/2019 M54.5 Low back pain Leilani Andrew, MANAGER [employer]PLICATIONS 05/03/2019 K64.9 Unspecified hemorrhoids Leilani Andrew, MANAGER [employer] APPLICATIONS 05/03/2019 K59.00 Constipation, unspecified Leilani Andrew, MANAGER [employer]INICAL APPLICATIONS Plan of Treatment Future Appointment(s):07/12/2019 2:40 pm - Vikas Gamble M.D. at Main Bwvnzj9206/07/2019 - Trey Acosta-CK59.00 Constipation, unspecifiedAllComments:Medication Management Patient Understands medications she 's taking? Yes No Are there Barriers to Adherence? Yes No Has the patient been asked about herbal supplements and therapies, and OTC meds? Yes No Care Plan1. Patient has been queried about patient's goals/ preferences and functional/lifestyle goals at relevant visits. If relevant, describe: na2. Treatment goals as explained to the patient: aboveimprovement in constipation 3. Are there barriers to meeting treatment goals? Yes No If Yes, please describe:pt states her depression causes her to forget routine bowel care 4. Self-Management goals as described to the patient: Yes Nodoes not want to go to er--will try the mag citrate , ensure adequate fluids, prunes every am message at adult protectiveintake f/u with pcp routine Functional Status Description No Information Available Mental Status Description No Information Available Referrals Refer to Dr Reason for Referral Status Appt Date Tammy Pryor MD Priority. Consult and treat low back Sent pain. Office note, radiology report, labs and triage faxed. [address] [facility], [place] [address] [phone]
--- OUTSIDE RECORDS SUMMARY | 2019-06-12 21:07 | XMS REPORT | Continuity of Care Document ---
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 Tank Mechanic [phone] Asthma & Allergy - Allergy & Care Team Information Cargo Tank Mechanic [phone] Immunology Problems Active Problems Provider Date Depressive [...] Leilani 05/17/2019 today TUCKER Morales 7-19GM/118ML Enema [place] one by mouth three 90tabs M54.5 Leilani 05/07/2019 5-325mg times a day as 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, 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 Tablets needed for severe pain/known sedation & respiratory depression with alprazolam, pls dispense M54.6 Methocarbamol 1 by mouth twice 60tabs M54.6 Leilani Morales, 05/03/2019 500mg Tablets a day as needed 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 spasm M54.5 Celexa 1 by mouth every [...] Morales, 05/03/2019 - 50mg as needed pain 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 05/07/2019 Tablets M54.6 Medications Administered in Office Medication SIG Qnty Indications Ordering Provider Date Injection Subcutaneous Or TUCKER Ngo 05/03/2019 Intramuscular Injection Immunizations CPT Code Status Date Vaccine Lot # [id number] Given 12/17/2018 Influenza Vac, Quadriv[place], [place] [id number] Given 01/03/2018 Influenza Vac, Quadriv[place], [place] [address] Given 01/04/2017 Influenza Vac, Quadriv[place], [place] [address] Given 09/11/2016 Tdap Tetanus, W Pertussis [id number] 51305 Given 01/05/2016 Influenza Vac, Quadriv[place], [place] [address] Given 08/10/2015 Pneumococcal Conjugate Vacc-13 78603 Given 06/20/2015 Zostivax 51358 Given 01/05/2015 Influenza Vac, Quadriv[place], [place] [address] Given 01/13/2014 DO Not Use Split Influenza Virus Vaccine 84038 Given 02/13/2013 DO Not Use Split Influenza Virus Vaccine 96533 Given 03/18/2012 DO Not Use Split Influenza Virus Vaccine 85112 Given 12/19/2010 DO Not Use Split Influenza Virus Vaccine [id number] 96783 Given 02/02/2010 DO Not Use Split Influenza Virus Vaccine [id number] 40460 Given 01/29/2008 DO Not Use Split Influenza Virus Vaccine [id number] 31988 Given 02/06/2007 DO Not Use Split Influenza Virus Vaccine [id number] 74005 Given 02/07/2006 DO Not Use Split Influenza Virus Vaccine [id number] 45002 Given 02/13/2005 DO Not Use Split Influenza [...] [address] [place] [address] NOTE> [phone] Laboratory test 12/30/2018 [facility] Cologuard Cancelled - Not Applicable [address] [place] [address] NOTE> [phone] 1 Because ethnic data is not always [...] can be accessed at the following location: www.[employer]/results. Additional description of the Cologuard test process, warnings and precautions can be found at [email or web address]. Rx Only. 3 Cancelled - Order This [...] can be accessed at the following location: www.[employer]/results. Additional description of the Cologuard test process, warnings and precautions can be found at [email or web address]. Rx Only. Procedures Date Code Description Status 05/03/2019 94270 Injection Subcutaneous Or Intramuscular Completed 05/03/2019 28699 Brief Emotional/Behav Assessment W/ Scoring Doc Per Completed Standard Inst 02/22/2019 [id number] Mammogram Completed 12/15/2017 [id number] Mammogram Completed 12/15/2017 [id number] Bone Mineral Density Test Completed 10/01/2016 [id number] Mammogram Completed 03/21/2015 [id number] Mammogram Completed 03/28/2011 [id number] Mammogram Completed 03/22/2010 [id number] Mammogram Completed 01/23/2009 [id number] Mammogram Completed 09/30/2007 [id number] Mammogram Completed Medical Devices Description No Information Available Encounters Type Date Location Provider Dx Diagnosis Office Visit 05/03/2019 Main Office Leilani Morales, F33.9 Major depressive 1:30p 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 disorder, recurrent, unspecified F43.21 Adjustment disorder with depressed mood G47.00 Insomnia, unspecified R45.84 Anhedonia Z63.4 Disappearance and of family member M54.6 Pain in thoracic spine M54.5 Low back pain K64.9 Unspecified hemorrhoids K59.00 Constipation, unspecified Assessments Date Code Description Provider 06/07/2019 K59.00 Constipation, unspecified Trey Acosta-C 05/03/2019 F33.9 Major depressive disorder, recurrent, Leilani Andrew, 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 unspecified 05/03/2019 F43.21 Adjustment disorder with depressed mood Leilani Andrew , 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 05/03/2019 G47.00 Insomnia, unspecified Leilani Andrew, 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 05/03/2019 R45.84 Anhedonia Leilani Andrew, 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 05/03/2019 Z63.4 Disappearance and of family member Leilaninavjot Morales , 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 05/03/2019 M54.6 Pain in thoracic spine Leilani Andrew, 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 05/03/2019 M54.5 Low back pain Leilani Andrew, 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 05/03/2019 K64.9 Unspecified hemorrhoids Leilani Andrew, 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 05/03/2019 K59.00 Constipation, unspecified Leilani Andrew, 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 Plan of Treatment Future Appointment(s):07/12/2019 2:40 pm - Vikas Gamble M.D. at Main Zvfzla7606/07/2019 - Trey Acosta-CK59.00 Constipation, unspecifiedAllComments:Medication Management Patient [...] , ensure adequate fluids, prunes every am Functional Status Description No Information Available Mental Status Description No Information Available Referrals Refer to Reason for Referral Status Appt Date Tammy Pryor MD Priority. Consult and treat low back Sent 00/00/ 0000 pain. Office note, radiology report, labs and triage faxed. [address], [place] [address] [phone]
[2019-06-12] MEDS ORDERED: Potassium Chlor TAB* 20 MEQ TAB.ER PO ONE (21:21)
[2019-06-12 21:34] LABS: Hepatitis C Antibody Negative (Negative)
[2019-06-12] MEDS ORDERED: Mineral Oil ENEMA* 1 BOTTLE PR ONE (21:59)
--- NOTE | 2019-06-12 22:35 | ED ---
Progress - Progress Note Progress Note: Patient is received as a sign-out from Dr. Holder at 2200 06/12/19 shift end pending Pelvic and Lumbar Spine CT. CT PELVIS IMPRESSION: 1. No fracture identified. However, the bones are diffusely demineralized which limits evaluation of bony detail. 2. Evidence of fecal impaction with mild perirectal haziness. No evidence of pneumatosis. Findings raise the possibility of stercoral colitis and disimpaction is recommended. 3. Markedly distended urinary bladder, possibly secondary to fecal impaction and distended rectum. THIS REPORT WAS REVIEWED BY ED PHYSICIAN. CT LUMBAR SPINE IMPRESSION: 1. Moderate T11 compression deformity, new since prior study dated 05/09/2019. No retropulsed fragments. 2. Stable mild L1 compression deformity. 3. Diffuse bony demineralization. 4. Fecal impaction with mild perirectal haziness. No evidence of pneumatosis. Findings raise the possibility of stercoral colitis and disimpaction is recommended. THIS REPORT WAS REVIEWED BY ED PHYSICIAN. During ED course, patient received potassium chloride 10 meq in 50 mls @ 50 mls/ hr IV, fluids, enema, fentanyl 50 mcg x2, Xanax 0.[address] Lima evaluate the patient and disimpacted the patient. Attempted to have a bowel movement on bedside commode and states that she is having a panic attack and requests Xanax. Patient is capable of passing stool by herself. She requests admission to [facility] for management of her Sx. Patient reports that she will refuse short term rehab facility stay. She will be given Xanax and discharged to home. Course/Dx - Diagnoses Provider Diagnoses: Fall, Compression fracture, Constipation - Provider Notifications Discussed Care Of Patient With: Susanna Lima Time Discussed With Above Provider: 04:13 Instructed by Provider To: Other - 0416 Dr. Lima evaluate the patient and disimpacted the patient. Attempted to have a bowel movement on bedside commode and states that she is having a panic attack and requests Xanax. Patient is capable of passing stool by herself. She requests admission to [facility] for management of her Sx. Patient reports that she will refuse short term rehab facility stay. She will be given Xanax and discharged to home. Discharge ED - Sign-Out/Discharge Documenting (check all that apply): Patient Departure - discharge - Discharge Plan Condition: Stable Disposition: HOME Patient Education Materials: Constipation (ED), Vertebral Compression Fracture (ED), Fall Prevention (ED), Hip Contusion (ED) Referrals: Vikas Gamble MD [Primary Care Provider] - 3 Days Additional Instructions: Take motrin and tylenol for your pain Follow up with your primary care doctor in 1-3 days Return to the ED if you have another fall with injury, uncontrolled pain, or any other concerning symptoms - Attestation Statements Document Initiated by Scribe: Yes Documenting Scribe: JENNIFFER AMAYA Provider For Whom Scribe is Documenting (Include Credential): OCTAVIO DON MD Scribe Attestation: IJENNIFFER, scribed for OCTAVIO DON MD on 06/13/19 at 0433. Status of Scribe Document: Ready
[2019-06-12] MEDS ORDERED: fentaNYL* 50 MCG/ML 2 ML VIAL (100 MCG VIAL) IV SLOW PU ONE (22:53)
[2019-06-12] MEDS ORDERED: NS 0.9% 1000 ML** 1,000 ML IV.FLUID IV ONE (22:59)
[2019-06-12] MEDS ORDERED: KCL 10 MEQ/50 ML IVPREMIX* 10 MEQ/50 ML BAG IV ONE (23:10)
[2019-06-13] MEDS ORDERED: fentaNYL* 50 MCG/ML 2 ML VIAL (100 MCG VIAL) IV SLOW PU ONE (01:16)
[2019-06-13] MEDS ORDERED: Mineral Oil ENEMA* 1 BOTTLE PR ONE (01:43)
[2019-06-13] MEDS ORDERED: Lidocaine 2% JELLY* 6 ML JELLY TOPICAL ONE (03:55)
[2019-06-13] MEDS ORDERED: ALPRAZolam TAB* 0.25 MG PO ONE (04:15)
--- NOTE | 2019-06-13 04:29 | CONSULT ---
Subjective Date of Service: 06/13/19 Interval History: 64F PMH anxiety, depression, recent compression fracture who came in 2/ to mechanical fall, back pain, found to have stercoral colitis and constipation, labs show mild hypoK. No fracture noted. Hospitalist asked to consult and possibly admit the patient and for "mag citrate " and intractable back pain I evaluated the patient, she is anxious and in mild pain, she would like ot have a BM, she was refusing manual disimpaction per report of ED physician but allowed me to disimpact her. We discussed compression fractures generally have outpt mgmt unless there is neurological involvement and we have no neurosurgeons who would evaluate her, no does it have high risk features. She reports she feels anxious and lonely at home and I offer observation but she refuses admission unless I can guarantee that there will be "no bill." I can not guarantee this, also she tells me she will refuse PT, OT, and any evaluation for IZABELA which would effectively null all the opportunities we could offer her. VSS, notable for HTN She endorses back pain, anxiety , depression and constipation on ROS, denies osman abdominal pain, fevers and chills, nausea vomiting new rashes or lesions. She is able to ambulate with assistance at baseline. Review of Systems - Measurements Intake and Output: Intake and Output Last 24 Hours 06/10/19 06/11/19 06/12/19 06/13/19 06:59 06:59 06:59 06:59 Weight 170 lb - Review of Systems General Comments: As per HPI Objective Vital Signs - 8 hr 06/12/19 06/12/19 06/12/19 20:59 21:01 22:11 Pulse Rate 85 89 82 Respiratory Rate Blood Pressure 182/101 (mmHg) O2 Sat by Pulse 96 97 92 Oximetry 06/12/19 06/12/19 06/12/19 22:29 23:05 23:17 Pulse Rate 81 100 Respiratory 20 Rate Blood Pressure 178/85 (mmHg) O2 Sat by Pulse 93 94 Oximetry 06/12/19 06/12/19 06/13/19 23:29 23:59 00:01 Pulse Rate Respiratory 16 21 18 Rate Blood Pressure 166/107 196/87 (mmHg) O2 Sat by Pulse Oximetry 06/13/19 06/13/19 06/13/19 00:16 00:29 00:59 Pulse Rate Respiratory 22 18 23 Rate Blood Pressure 187/108 199/96 (mmHg) O2 Sat by Pulse Oximetry 06/13/19 06/13/19 06/13/19 01:01 01:25 01:30 Pulse Rate Respiratory 23 18 16 Rate Blood Pressure 198/87 (mmHg) O2 Sat by Pulse Oximetry 06/13/19 06/13/19 06/13/19 02:53 02:54 03:00 Pulse Rate 97 88 91 Respiratory Rate Blood Pressure 193/104 185/118 (mmHg) O2 Sat by Pulse 92 93 92 Oximetry 06/13/19 03:01 Pulse Rate 90 Respiratory Rate Blood Pressure (mmHg) O2 Sat by Pulse 92 Oximetry Oxygen Devices in Use Now: None Appearance: Anxious dishevled woman crying most of the exam Eyes: No Scleral Icterus, PERRLA Ears/Nose/Mouth/Throat: - - Poor dentition Neck: NL Appearance and Movements; NL JVP, Trachea Midline Respiratory: Symmetrical Chest Expansion and Respiratory Effort, Clear to Auscultation Cardiovascular: NL Sounds; No Murmurs; No JVD, RRR Abdominal: NL Sounds; No Tenderness; No Distention, No Hepatosplenomegaly, - - Rectal exam shows external hemmorhoids sig stool burden see procedure note. Lymphatic: No Cervical Adenopathy Extremities: No Edema Skin: No Rash or Ulcers Neurological: Alert and Oriented x 3 Result Diagrams: 06/12/19 20:25 06/12/19 20:24 Diagnostic Imaging: Imaging of lumbar spine IMPRESSION: 1. Moderate T11 compression deformity, new since prior study dated 05/09/2019. No retropulsed fragments. 2. Stable mild L1 compression deformity. 3. Diffuse bony demineralization. 4. Fecal impaction with mild perirectal haziness. No evidence of pneumatosis. Findings raise the possibility of stercoral colitis and disimpaction is recommended. Assessment/Plan - Billing 64F PMH anxiety, depression, recent compression fracture who came in 2/2 to mechanical fall, back pain, found to have stercoral colitis and constipation, labs show mild hypoK. No fracture noted. Procedure: Using lidocaine jelly, I manually disimpacted roughly a grapefruit size amt of stool from her rectum, she tolerated the procedure fairly. After the procedure she was pushing solid stool out on her own. Plan By Medical Problem: 1. Compression fracture: Start nasal calcitonin, will need osteoporosis tx as outpt, may need pain control, rest, and PT as outpt We can offer inpatient observation for pain control and eval by PT and OT in house though she is refusing such at present. 2. Stercoral colitis: s/p disimpaction, should continue home enemas and stool softners At this time pt is electing to go home and see how she does, she may be back and if she does return she assures me she will be willing for PT eval.
[2019-06-13 05:04] VITALS: BP 169/99
== END 2019-06-13 05:04 | disposition home or self-care (01) ==
LOC: ED 19:50
DX: S22.089A Unspecified fracture of T11-T12 vertebra, initial encounter for closed fracture (principal); K59.00 Constipation, unspecified; W18.39XA Other fall on same level, initial encounter; Y92.9 Unspecified place or not applicable; I10 Essential (primary) hypertension; F41.9 Anxiety disorder, unspecified; F32.9 Major depressive disorder, single episode, unspecified; F43.10 Post-traumatic stress disorder, unspecified; F17.210 Nicotine dependence, cigarettes, uncomplicated; Z79.899 Other long term (current) drug therapy
CPT/HCPCS: 36415; 72131; 72192; 80053; 85025; 86803; 96361; 96365; 96375; 96376; 99284; A9270-GY; J3010; J3480

== ENCOUNTER 2019-06-16 20:06 | Emergency (ER) | payer MEDICARE ==
[2019-06-16] MEDS ORDERED: NS 0.9% 1000 ML** 1,000 ML IV ONE (20:08)
--- NOTE | 2019-06-16 20:17 | ED ---
Altered Mental Status - HPI Summary HPI Summary: Patient is a 64 year-old female arriving via ambulance to [facility] Emergency Department with concern for altered mental status and intractable pain. Per EMS , the patients neighbor called for the patient after finding her on the floor incontinent of urine and stool. Patient has a known vertebral compression fracture. EMS reports multiple beer cans and pain medications found in the home. Patient has not spoken or been cooperative while with EMS, but they have observed her to be in discomfort likely from the back pain. Blood glucose 150, heart rate in the 140s, cold to sensation. She was seen here on 06/12/2019 for fall with hospitalist consultation but election to return home despite offer for inpatient observation for pain control and evaluation by physical and occupational therapy services. Patient lives alone. Past medical history includes spondylolisthesis of the lumbar region, osteoarthritis of right knee, stercoral colitis, anxiety, depression, PTSD, Current smoker, no alcohol use, no substance use. Medications reviewed. Allergies noted. LEVEL 5 CAVEAT secondary to altered mental status. History obtained from EMS and medical records. - History Of Current Complaint Stated Complaint: AMS PER EMS Hx Obtained From: EMS, Medical Records Onset/Duration: Still Present Character: Confusion Aggravating Factor(s): Unknown - Allergies/Home Medications Allergies/Adverse Reactions: Allergies Allergy/AdvReac Type Severity Reaction Status Date / Time lactose Allergy Diarrhea Verified 05/18/19 13:52 Home Medications: Home Medications ALPRAZolam TAB* [Xanax TAB*] 0.25 mg PO BID PRN 09/20/18 [History Confirmed ] Citalopram TAB* [Celexa TAB*] 40 mg PO DAILY 09/20/18 [History Confirmed ] Hydrochlorothiazide TAB* [Hydrodiuril TAB*] 25 mg PO DAILY 09/20/18 [History Confirmed 06/16/19] Metoprolol Tartrate TAB* [Lopressor TAB*] 50 mg PO BID 09/20/18 [History Confirmed 06/16/19] Cholecalciferol CAP/TAB(NF) [Vitamin D3 CAP/TAB (NF)] 5,000 unit PO DAILY [History Confirmed 06/16/19] Methocarbamol TAB* [Robaxin 500 MG TAB*] 500 mg PO BID PRN 05/09/19 [History Confirmed 06/16/19] Mometasone NASAL (NF) [Nasonex (NF)] 2 spray BOTH NARES DAILY 05/09/19 [History Confirmed 06/16/19] Magnesium Citrate 250 mg PO DAILY 05/16/19 [History Confirmed 06/16/19] Sodium Phosphate ADULT ENEMA* [Fleet Enema*] 1 enema [place] DAILY PRN 05/18/19 [ History Confirmed 06/16/19] Acetaminophen [Tylenol] 650 mg PO Q6H PRN 06/13/19 [History Confirmed 06/16/19] Naproxen Sodium [Aleve] 220 mg PO BID PRN 06/13/19 [History Confirmed 06/16/19] PMH/Surg Hx/FS Hx/Imm Hx Endocrine/Hematology History: Denies: Hx Diabetes Cardiovascular History: Reports: Hx Hypertension Denies: Hx Hypercholesterolemia Musculoskeletal History: Reports: Hx Arthritis, Hx Back Problems - compression fracture, spondylolisthesis Denies: Hx Osteoporosis Sensory History: Denies: Hx Legally Blind, Hx Deafness Opthamlomology History: Denies: Hx Legally Blind Psychiatric History: Reports: Hx Anxiety, Hx Depression, Hx Post Traumatic Stress Disorder - Cancer History Hx Chemotherapy: No Hx Radiation Therapy: No - Surgical History Surgical History: Unable to Obtain/Confirm - level 5 caveat d/t AMS - Family History Known Family History: Positive: Other - breast CA - Social History Alcohol Use: None Hx Substance Use: No Substance Use Type: Reports: None Hx Tobacco Use: Yes Smoking Status (MU): Light Every Day Tobacco Smoker Review of Systems Positive: Other - incontinence Positive: incontinence Positive: Other - back All Other Systems Reviewed And Are Negative: No - Comments Additional Review of Systems Comments: LEVEL 5 CAVEAT secondary to altered mental status. Physical Exam - Summary Physical Exam Summary: VITAL SIGNS: Reviewed. GENERAL: Patient is a well-nourished elderly female with poor hygiene appearing very disheveled. Patient smells of urine with subsequent wetness of all her clothes. She is complaining of pain but is disoriented. Patient is not in any acute respiratory distress. HEAD AND FACE: Green discharge from the nose. No signs of trauma. No ecchymosis , hematomas or skull depressions. No sinus tenderness. EYES: PERRLA, EOMI x 2, No injected conjunctiva, no nystagmus. EARS: Hearing grossly intact. Ear canals and tympanic membranes are within normal limits. MOUTH: Oropharynx within normal limits. NECK: Supple, trachea is midline, no adenopathy, no JVD, no carotid bruit, no c- spine tenderness, neck with full ROM. CHEST: Symmetric, no tenderness at palpation. LUNGS: Clear to auscultation bilaterally. No wheezing or crackles. CVS: Regular rate and rhythm, S1 and S2 present, no murmurs or gallops appreciated. ABDOMEN: Soft, non-tender. No signs of distention. No rebound, no guarding, and no masses palpated. Decreased bowel sounds. EXTREMITIES: FROM in all major joints, no edema, no cyanosis or clubbing. NEURO: Alert but not oriented. SKIN: Bruising in the right shoulder. Dry and warm. RECTAL EXAM: Black stool. GCS: 13 (see scale). Triage Information Reviewed: Yes Vital Signs Reviewed: Yes Completion Of Physical Exam Limited Due To: Altered Mental Status, Level 5 - Felt Coma Scale Best Eye Response: 4 - Spontaneous Best Motor Response: 5 - Purposeful Movement Best Verbal Response: 4 - Confused Coma Scale Total: 13 Procedures - Sedation Patient Received Moderate/Deep Sedation with Procedure: No Diagnostics - Laboratory Result Diagrams: 06/16/19 21:27 06/16/19 21:27 Lab Statement: Any lab studies that have been ordered have been reviewed, and results considered in the medical decision making process. - Radiology CXR Radiology Interpretation Completed By: Radiologist Summary of Radiographic Findings: Some cardiomegaly noted. No acute findings. Dr. Carbone has reviewed and interpreted this report. Pending official read. - CT Brain CT CT Interpretation Completed By: Radiologist Summary of CT Findings: Impression: Patient motion without definite acute intracranial abnormality. Dr. Carbone has reviewed this report. Lumbar Spine CT CT Interpretation Completed By: Radiologist Summary of CT Findings: Impression: 1. No acute lumbar spine fracture. 2. Findings as above concerning for proctocolitis, possibly stercoral. Dr. Carbone has reviewed this report. Thoracic ST CT Interpretation Completed By: Radiologist Summary of CT Findings: Impression: 1. Displaced fractures involving the left 6th and 7th ribs. 2. Small left-sided pleural effusion, likely hemorrhagic. 3. Moderate compression fractures involving T6, T7 and T11. Suspect subacute fractures, MRI may be considered. Dr. Carbone has reviewed this report. Pelvis CT CT Interpretation Completed By: Radiologist Summary of CT Findings: Impression: 1. No acute osseous abnormality. 2. Findings are proctocolitis, possibly stercoral. Dr. Carbone has reviewed this report. Cervical Spine CT CT Interpretation Completed By: Radiologist Summary of CT Findings: Impression: Patient motion without definite acute cervical spine fracture. Dr. Carbone has reviewed this report. Re-Evaluation - Re-Evaluation First Eval Re-Evaluation Time: 22:40 Comment: Nurse notifies us with the patient having likely urinary retention after draining 1925 ccs urine through the catheter. Altered Mental Statu Course/Dx - Course Assessment/Plan: Patient is a 64 year-old female arriving via ambulance to [facility] Emergency Department with concern for altered mental status and intractable pain. Per EMS, the patients neighbor called for the patient after finding her on the floor incontinent of urine and stool. Patient has a known vertebral compression fracture. EMS reports multiple beer cans and pain medications found in the home. Patient has not spoken or been cooperative while with EMS, but they have observed her to be in discomfort likely from the back pain. Blood glucose 150, heart rate in the 140s, cold to sensation. She was seen here on for fall with hospitalist consultation but election to return home despite offer for inpatient observation for pain control and evaluation by physical and occupational therapy services. Patient lives alone. Past medical history includes spondylolisthesis of the lumbar region, osteoarthritis of right knee, stercoral colitis, anxiety, depression, PTSD, Current smoker, no alcohol use, no substance use. Medications reviewed. Allergies noted. LEVEL 5 CAVEAT secondary to altered mental status. History obtained from EMS and medical records. She has a history of chronic back pain secondary to compression fractures, osteoarthritis, osteopenia, chronic sinusitis, chronic constipation, hypertension, depression and anxiety. In the ED course, the patient was placed on a hand compositor, IV access was obtained, IV fluids started. Past medical records reviewed. Blood test w/o a significant abnormality except for the WBCs of 25, absolute neutrophils of 22.1, potassium 3.3, chloride 100, anion gap 14, BUN is 34, creatinine 0.99, glucose 174, lactic acid 5.2, calcium 12.3, AST 9, ammonia 56, total creatinine kinase 998, and troponin 1.79. Urinalysis shows 1+ ketones, 2+ blood, but no UTI. Urine toxicology is negative. We placed a Carlos catheter for this patient, and she expressed approximately 1900 amounts of urine. The patient has urinary retention. I performed a rectal exam, and the patient has good sphincter tone. She has black stools, however the guaiac is negative. Patient was placed in a hard collar. She was given IV fluids for her dehydration and rhabdomyolysis. She was given Zofran and Morphine for the pain. She was given potassium for hypokalemia. Head CT Impression: Patient motion without definite acute intracranial abnormality. T spine CT Impression: 1. Displaced fractures involving the left 6th and 7th ribs. 2. Small left-sided pleural effusion, likely hemorrhagic. 3. Moderate compression fractures involving T6, T7 and T11. Suspect subacute. L spine CT and pelvic CT Impression: 1. No acute lumbar spine fracture. 2. Findings as above concerning for proctocolitis, possibly stercoral. C spine CT Impression: Patient motion without definite acute cervical spine fracture. Patient was given IV potassium. I discussed my physical exam and findings with Dr. Stallings from [facility], and he accepted the patient for transfer. This patient is too confused but hemodynamically stable. - Diagnoses Provider Diagnoses: Multiple rib fractures, Fracture of multiple thoracic vertebrae, Altered mental state, Elevated troponin, Leukocytosis, Dehydration, Hypercalcemia, Rhabdomyolysis - Provider Notifications Discussed Care Of Patient With: Nakita Sanchez - hospitalist Time Discussed With Above Provider: 22:35 Instructed by Provider To: Transfer - I discussed the patient's case with Dr. Sanchez, and she suggests transfer. Dr. Pryor from neurosurgery is aware of the patient and agrees with transfer. Dr. Hair Stallings accepts the patient for transfer to [facility] ED [[id number]]. Reason For Transfer: Patient not appropriate for [facility]. - Critical Care Time Critical Care Time: 75-104 min Discharge ED - Sign-Out/Discharge Documenting (check all that apply): Patient Departure - Patient accepted for transfer to [facility] by Dr. Stallings. - Discharge Plan Condition: Stable Disposition: TRANS HIGHER LVL OF CARE FAC Referrals: Vikas Gamble MD [Primary Care Provider] - - Billing Disposition and Condition Condition: STABLE Disposition: Trans Higher Lvl of Care Fac - Attestation Statements Document Initiated by Scribe: Yes Documenting Scribe: Anais Velazquez Provider For Whom Scribe is Documenting (Include Credential): Harsha Carbone MD Scribe Attestation: I, Anais Velazquez, scribed for Harsha Carbone MD on 06/17/19 at 0026. Scribe Documentation Reviewed: Yes Provider Attestation: The documentation as recorded by the Anais clark accurately reflects the service I personally performed and the decisions made by me, Harsha Carbone MD Status of Scribe Document: Viewed
[2019-06-16 21:36] LABS: Hematocrit 44 % (35-47); Hemoglobin 15.1 g/dL (12.0-16.0); Mean Corpuscular HGB Conc 34 g/dL (31-36); Mean Corpuscular Hemoglobin 32 pg (27-31); Mean Corpuscular Volume 94 fL (80-97); Mean Platelet Volume 9.6 fL (7.4-10.4); Platelet Count 361 10^3/uL (150-450); Red Blood Count 4.74 10^6 /uL (3.70-4.87); Red Cell Distribution Width 13 % (10-15)
[2019-06-16 21:44] LABS: Urine Appearance Cloudy; Urine Bilirubin Negative (Negative); Urine Blood 2+ (Negative); Urine Color Amber; Urine Glucose Negative (Negative); Urine Ketones 1+ (Negative); Urine Nitrite Negative (Negative); Urine Protein Negative (Negative); Urine Specific Gravity 1.016 (1.010-1.030); Urine Urobilinogen Negative (Negative)
[2019-06-16 21:46] LABS: Urine Bacteria Absent (Absent); Urine Red Blood Cell 3+(>10/hpf) (Absent); Urine White Blood Cell Trace(0-5/hpf) (Absent)
[2019-06-16 21:54] LABS: ALT 21 U/L (7-52); AST 49 U/L (13-39); Albumin 3.7 g/dL (3.2-5.2); Albumin/Globulin Ratio 1.2 (1-3); Alkaline Phosphatase 77 U/L (34-104); Anion Gap 14 mmol/L (2-11); BUN/Creatinine Ratio 34.3 (8-20); Blood Urea Nitrogen 34 mg/dL (6-24); CO2 Carbon Dioxide 29 mmol/L (22-32); Calcium 12.3 mg/dL (8.6-10.3); Chloride 100 mmol/L (101-111); Creatine Kinase 998 U/L (10-223); EGFR African American 67.9 (>60); EGFR Non-African American 56.1 (>60); Globulin 3.2 g/dL (2-4); Glucose 174 mg/dL (70-100); Magnesium 1.9 mg/dL (1.9-2.7); Potassium 3.3 mmol/L (3.5-5.0); Sodium 143 mmol/L (135-145); Total Protein 6.9 g/dL (6.4-8.9)
[2019-06-16 21:59] LABS: Urine Benzodiazepine Screen None Detected (None Detect); Urine Opiates Screen None Detected (None Detect)
[2019-06-16 21:59] LABS: Troponin I 1.79 ng/mL (<0.03)
[2019-06-16] MEDS ORDERED: Piperacillin/Tazobac ADVAN(*) 3.375 GM in NS 0.9% 100 ML* 100 ML IVPB ONE (21:59)
[2019-06-16 22:03] LABS: ABS Basophils 0.1 10^3/ul (0-0.2); ABS Lymphocytes 1.2 10^3/ul (1.0-4.8); ABS Monocytes 1.6 10^3/ul (0-0.8); ABS Neutrophils 22.1 10^3/ul (1.5-7.7); Lymphocyte % 4.7 %; Nucleated Red Blood Cells % 0.1
[2019-06-16] MEDS ORDERED: Dexamethasone IV* 4 MG/ML 1 ML (4 MG) IV SLOW PU ONE (22:40)
[2019-06-16] MEDS ORDERED: Morphine 4 MG/ML VIAL (1 ml) 4 MG/ML VIAL IV ONE (22:41)
[2019-06-16] MEDS ORDERED: Ondansetron INJ* 2 MG/ML VIAL IV ONE (22:41)
[2019-06-16] MEDS ORDERED: KCL 10 MEQ/50 ML IVPREMIX* 10 MEQ/50 ML BAG IV SCH (23:00)
[2019-06-17 00:04] LABS: Acetaminophen < 15 mcg/mL; Alcohol < 10 mg/dL (<10); Salicylate < 2.50 mg/dL (<30)
[2019-06-17 00:20] LABS: TSH (Thyroid Stimulating Horm) 2.54 mcIU/mL (0.34-5.60)
[2019-06-17 00:43] VITALS: BP 103/74
--- NOTE | 2019-06-17 14:24 | ED ---
Imaging and Labs Follow Up Follow Up Type: Labs/Cultures Labs/Culture Result: One anaerobic bottle positive for gram positive cocci. Patient Communication/Plan: Pt. transferred to [facility] [address] for higher level of care. Will fax final culture when available. Provider Diagnoses: Multiple rib fractures, Fracture of multiple thoracic vertebrae, Altered mental state, Elevated troponin, Leukocytosis, Dehydration, Hypercalcemia, Rhabdomyolysis
--- NOTE | 2019-06-20 07:10 | ED ---
Imaging and Labs Follow Up Follow Up Type: Labs/Cultures Labs/Culture Result: Faxed final report to [facility] at 7:10am on 06/19 Patient Communication/Plan: pt transferred Patient Communication/Plan: Faxed final report to [facility] at 7:10am on 06/19 Provider Diagnoses: Multiple rib fractures, Fracture of multiple thoracic vertebrae, Altered mental state, Elevated troponin, Leukocytosis, Dehydration, Hypercalcemia, Rhabdomyolysis
== END 2019-06-17 00:45 | disposition short-term general hospital (02) ==
LOC: ED 20:06
DX: S22.49XA Multiple fractures of ribs, unspecified side, initial encounter for closed fracture (principal); S22.009A Unspecified fracture of unspecified thoracic vertebra, initial encounter for closed fracture; X58.XXXA Exposure to other specified factors, initial encounter; Y92.9 Unspecified place or not applicable; R41.82 Altered mental status, unspecified; R79.89 Other specified abnormal findings of blood chemistry; D72.829 Elevated white blood cell count, unspecified; E86.0 Dehydration; E83.52 Hypercalcemia; M62.82 Rhabdomyolysis; I10 Essential (primary) hypertension; F41.9 Anxiety disorder, unspecified; Z85.3 Personal history of malignant neoplasm of breast; F17.210 Nicotine dependence, cigarettes, uncomplicated; Z79.899 Other long term (current) drug therapy
CPT/HCPCS: 36415; 70450; 71045; 72125; 72128; 72131; 72192; 80053; 80307; 80320; 80329; 81003; 81015; 82140; 82270; 82550; 83605; 83735; 84443; 84484; 85025; 86850; 86900; 86901; 87040; 87077; 87086; 87150; 87205; 96365; 96367; 96375; 99285; G0480; J1100; J2270; J2405; J2543; J3480